=== PATIENT | male | born 1940 | race Caucasian/White ===

== ENCOUNTER → 2017-04-02 | Outpatient (CLI) | payer MEDICARE, OTHER ==
[~2017-04-02] MED LIST: ACTOPLUS MET 501 TAB PO; AMOXICILLIN/CLA1 TA1 PO; ASPIRIN 81MG TA81 MG PO; GENTAMICIN O5 ML/BOT OP; KEFLEX 500MG.500 MG PO; LANTUS INS100 UNITS/ SC; LORTAB 5/500 501 TAB PO; PRAVASTATIN 40M40 MG PO; RAMIPRIL5 M1 PO; TRAMADOL 50MG T50 MG PO; VICODIN 5/500 T1 TAB PO
[2017-04-02 07:37] LABS: HEMOGLOBIN 11.9 g/dL (14.1-18.0); LYMPH # 1.3 K/mm3 (0.7-4.5); LYMPH % 30.3 % (10-50)
[2017-04-02 09:02] LABS: BUN 16 mg/dL (7-18)
[2017-04-02 09:12] LABS: GFR (ESTIMATED) 72 ML/MIN (>60)
== END ==
LOC: LAB 07:15
PROVIDERS: Otolaryngology
DX: D48.5 Neoplasm of uncertain behavior of skin (principal); Z01.812 Encounter for preprocedural laboratory examination

== ENCOUNTER → 2017-07-05 | Outpatient (CLI) | payer MEDICARE, OTHER ==
--- NOTE | 2017-07-05 17:30 | RADIOLOGY REPORT PS360 ---
KNEE-3 VIEWS-LT HISTORY: LT KNEE PAIN ORDERING PHYSICIAN: Allie Aviles MD PATIENT AGE: 76 years COMPARISON: 02/02/2017 FINDINGS: Osteoarthritic changes involving the medial compartment with decrease in the joint space and osteosclerosis with osteophyte formation. Previous area of subchondral lucency involving the medial femoral condyle not reproduced on today's exam. No fracture or dislocation. IMPRESSION: Mild osteoarthritis of the left knee
== END ==
LOC: RAD 16:40
DX: M25.562 Pain in left knee (principal)